=== PATIENT | male | born 1980 | race Caucasian/White ===

== ENCOUNTER 2022-02-10 21:08 | Emergency (ER) | payer SELFPAY ==
[~2022-02-10] VITALS: Ht 167.6 cm; Wt 70.3 kg
[2022-02-10] MEDS ORDERED: OXYCODONE W/ ACETAMINOPHEN 5/325MG TABLET PO ONE (22:00)
[2022-02-10 22:15] VITALS: BP 115/72
[2022-02-10] MEDS ORDERED: PERCOT PO (22:30)
== END 2022-02-11 00:19 | disposition home or self-care (01) ==
LOC: ER 21:08
DX: S42.022A Displaced fracture of shaft of left clavicle, initial encounter for closed fracture (principal); F12.10 Cannabis abuse, uncomplicated; Z88.8 Allergy status to other drugs, medicaments and biological substances; V18.0XXA Pedal cycle driver injured in noncollision transport accident in nontraffic accident, initial encounter; Y93.89 Activity, other specified; Y92.9 Unspecified place or not applicable; Y99.8 Other external cause status
CPT/HCPCS: 29105; 73030